=== PATIENT | female | born 1990 | race Caucasian/White ===

== ENCOUNTER → 2018-03-31 10:32 | Outpatient (CLI) | payer OTHER, SELFPAY ==
--- NOTE | 2018-03-31 10:44 | DI.CT.S_ITS ---
PROCEDURE: CT HEAD/BRAIN WO CON INDICATIONS: headache TECHNIQUE: Noncontrast 4.5 mm thick angled axial sections acquired from the foramen magnum to the vertex, with coronal and sagittal reformats. For radiation dose reduction, the following was used: automated exposure control, adjustment of mA and/or kV according to patient size. COMPARISON: None. FINDINGS: Image quality: Excellent. CSF spaces: Basal cisterns are patent. No extra-axial fluid collections. Ventricles are normal in size and shape. Brain: No midline shift. No intracranial masses or hemorrhage. Walker-white matter interface is normal. Skull and face: Calvarium and visualized facial bones are intact, without suspicious lesions. Sinuses: Visualized sinuses and mastoids are clear. IMPRESSION: 1. Normal CT brain scan, no etiology of chronic headaches seen. Dictated by: Cornelio Alexandra M.D. on 03/31/2018 at 10:53 Approved by: Cornelio Alexandra M.D. on 03/31/2018 at 10:54
== END ==
PROVIDERS: PCP Family Medicine; Visit Provider Family Medicine
DX: R51 Headache (principal)
CPT/HCPCS: 70450

== ENCOUNTER → 2018-10-08 11:10 | Outpatient (CLI) | payer OTHER, SELFPAY ==
[2018-10-08 12:33] LABS: HCG Quantitative /Beta subunit 14.14 mIU/mL
== END ==
PROVIDERS: PCP Family Medicine; Visit Provider Family Medicine
DX: N91.2 Amenorrhea, unspecified (principal)
CPT/HCPCS: 36415; 84702

== ENCOUNTER → 2018-10-10 06:55 | Outpatient (CLI) | payer OTHER, SELFPAY ==
[2018-10-10 09:58] LABS: HCG Quantitative /Beta subunit 5.47 mIU/mL
== END ==
PROVIDERS: PCP Family Medicine; Visit Provider Family Medicine
DX: N91.2 Amenorrhea, unspecified (principal)
CPT/HCPCS: 36415; 84702

== ENCOUNTER → 2018-11-04 09:38 | Outpatient (CLI) | payer OTHER, SELFPAY ==
[2018-11-04 10:42] LABS: Add Manual Diff / Slide Review NO; Basophils Absolute Auto 0 /uL (0-100); Basophils Percent Auto 0.3 % (0-2); Eosinophils Absolute Auto 0 /uL (0-450); Eosinophils Percent Auto 0.6 % (2-4); Hematocrit 41.2 % (36-46); Hemoglobin 13.9 g/dL (12.0-16.0); Lymphocytes Absolute Auto 3100 /uL (1100-4500); Lymphocytes Percent Auto 38.1 % (25-40); Mean Corpuscular HGB Conc 33.7 % (30-36); Mean Corpuscular Hemoglobin 29.6 PG (26-34); Mean Corpuscular Volume 87.8 fL (80-100); Monocytes Absolute Auto 700 /uL (0-900); Monocytes Percent Auto 8.3 % (3-14); Neutrophils Absolute Auto 4300 /uL (1500-7000); Neutrophils Percent Auto 52.7 % (50-75); Platelet Count 245 X10^3/uL (150-400); Red Blood Cell Count 4.69 X10^6/uL (4.0-5.2); Red Cell Distribution Width 13.6 % (11.6-14.8); White Blood Cell Count 8.2 X10^3/uL (4.5-11.0)
[2018-11-04 10:54] LABS: HEMOLYSIS < 15 (0-50); Iron 142 ug/dL (37-170)
[2018-11-04 11:05] LABS: Percent Iron Saturation 37 % (15-50); Total Iron Binding Capacity 386 ug/dL (265-497); Transferrin 298 mg/dL (206-381)
[2018-11-04 11:36] LABS: Vitamin B12 640 pg/mL (239-931)
== END ==
PROVIDERS: Family Provider Family Medicine; PCP Family Medicine; Visit Provider Family Medicine
DX: D64.9 Anemia, unspecified (principal); R51 Headache
CPT/HCPCS: 36415; 82607; 83540; 83550; 85025

== ENCOUNTER → 2018-11-19 09:07 | Outpatient (CLI) | payer OTHER, SELFPAY | PROVIDERS: Family Provider Family Medicine; PCP Family Medicine; Visit Provider Family Medicine | DX: R51 Headache (principal); Z53.9 Procedure and treatment not carried out, unspecified reason ==

== ENCOUNTER → 2018-11-24 08:43 | Outpatient (CLI) | payer OTHER, SELFPAY ==
[2018-11-24 11:33] LABS: HCG Quantitative /Beta subunit 34226 mIU/mL
== END ==
PROVIDERS: PCP Family Medicine; Visit Provider Family Medicine
DX: Z34.90 Encounter for supervision of normal pregnancy, unspecified, unspecified trimester (principal)
CPT/HCPCS: 36415; 84702

== ENCOUNTER → 2018-11-26 16:37 | Outpatient (CLI) | payer OTHER, SELFPAY ==
[2018-11-26 18:52] LABS: HCG Quantitative /Beta subunit 48369 mIU/mL
== END ==
PROVIDERS: PCP Family Medicine; Visit Provider Family Medicine
DX: Z34.90 Encounter for supervision of normal pregnancy, unspecified, unspecified trimester (principal)
CPT/HCPCS: 36415; 84702

== ENCOUNTER → 2018-12-08 09:08 | Outpatient (CLI) | payer OTHER, SELFPAY ==
--- NOTE | 2018-12-08 09:09 | DI.US.S_ITS ---
PROCEDURE: US OB <= 14 WEEKS FETUS INDICATIONS: DATES OUTSIDE/PRIOR DATING DATA: Last menstrual period (LMP): 10/08/18. LMP-based estimated date of delivery (NASREEN): 07/15/19. First dating scan (date and location): 12/08/18. Estimated date of delivery (NASREEN) from first dating scan: 07/14/19. TECHNIQUE: Real-time scanning was performed of the fetus and maternal pelvic organs, with image documentation. Endovaginal scanning was also performed to better visualize the fetus and maternal ovaries. COMPARISON: None. FINDINGS: Embryo: Single living intrauterine fetus is present with a heart rate measuring 182 beats per minute. Arthur-rump length measures 2.2 cm, 8 weeks 6 days. Measurement variability in dating: +/- 4 weeks by LMP, +/- 7 days by mean sac diameter (use before 6 weeks gestation if crown-rump length not able to be measured), +/- 5 days by crown-rump length (up to 8 weeks 6 days gestation), +/- 7 days by crown-rump length (up to 13 weeks 6 days gestation). Maternal organs: Ovaries unremarkable. Limited images through the kidneys demonstrate no hydronephrosis. IMPRESSION: Single living intrauterine fetus with a gestational age measuring 8 weeks and 6 days by today's ultrasound measurements, concordant with reported LMP as above. Dictated by: Eder Bullock M.D. on 12/08/2018 at 10:00 Approved by: Eder Bullock M.D. on 12/08/2018 at 10:01
== END ==
PROVIDERS: PCP Family Medicine; Visit Provider Family Medicine
DX: Z34.91 Encounter for supervision of normal pregnancy, unspecified, first trimester (principal); Z3A.08 8 weeks gestation of pregnancy
CPT/HCPCS: 76801; 76817

== ENCOUNTER → 2018-12-31 10:33 | Outpatient (CLI) | payer OTHER, SELFPAY ==
[2018-12-31 12:12] LABS: Appearance Urine UA CLEAR; Bilirubin Urine UA NEGATIVE (NEGATIVE); Color Urine UA YELLOW; Glucose Urine UA NEGATIVE (Negative); Ketones Urine UA NEGATIVE (NEGATIVE); Leukocyte Esterase Urine UA NEGATIVE (NEGATIVE); Nitrite Urine UA NEGATIVE (Negative); Occult Blood Urine UA NEGATIVE (Negative); Protein Urine UA NEGATIVE (Negative); Urobilinogen Urine UA 0.2 E.U./dL (0.2)
[2018-12-31 12:12] LABS: Add Manual Diff / Slide Review NO; Basophils Absolute Auto 0 /uL (0-100); Basophils Percent Auto 0.3 % (0-2); Eosinophils Absolute Auto 100 /uL (0-450); Eosinophils Percent Auto 0.8 % (2-4); Hematocrit 38.6 % (36-46); Hemoglobin 13.6 g/dL (12.0-16.0); Lymphocytes Absolute Auto 3100 /uL (1100-4500); Lymphocytes Percent Auto 29.4 % (25-40); Mean Corpuscular HGB Conc 35.2 % (30-36); Mean Corpuscular Hemoglobin 30.8 PG (26-34); Mean Corpuscular Volume 87.4 fL (80-100); Monocytes Absolute Auto 800 /uL (0-900); Monocytes Percent Auto 7.5 % (3-14); Neutrophils Absolute Auto 6500 /uL (1500-7000); Platelet Count 212 X10^3/uL (150-400); Red Blood Cell Count 4.42 X10^6/uL (4.0-5.2); Red Cell Distribution Width 13.7 % (11.6-14.8); White Blood Cell Count 10.6 X10^3/uL (4.5-11.0)
[2018-12-31 21:30] LABS: HIV 1 and 2 Antibody NEGATIVE (NEGATIVE); Hep C Virus Ab w/Reflex Quant NEGATIVE s/c (NEGATIVE); Hepatitis B Surface Antigen NEGATIVE s/c (NEGATIVE); Rubella Antibody IgG 2.8 IU/mL (>15)
[2019-01-02 15:05] LABS: RPR Screen Nonreactive (Nonreactive)
== END ==
PROVIDERS: PCP Family Medicine; Visit Provider Family Medicine
DX: Z34.81 Encounter for supervision of other normal pregnancy, first trimester (principal)
CPT/HCPCS: 36415; 80055; 81003; 86703; 86787; 86803; 86850; 86900; 86901; 87086

== ENCOUNTER → 2019-01-28 09:56 | Outpatient (CLI) | payer OTHER, SELFPAY ==
[2019-02-03 15:34] LABS: AFP, Serum 30.9 ng/mL; Cigarette Smoker NOT GIVEN; Donated Egg NOT GIVEN; Donor Egg Age NOT GIVEN; Estriol, Free 0.69 ng/mL; Inhibin A, Dimeric 180 pg/mL; Maternal Ethnicity CAUCASIAN; Maternal Weight 135 lbs; Number of Fetuses NOT GIVEN; Previous Pregnancy Down Syndro NOT GIVEN; hCG, MoM 0.93; hCG, Serum 34.4 IU/mL
== END ==
PROVIDERS: PCP Family Medicine; Visit Provider Family Medicine
DX: Z34.02 Encounter for supervision of normal first pregnancy, second trimester (principal); Z3A.16 16 weeks gestation of pregnancy
CPT/HCPCS: 36415; 82105; 82677; 84702; 86336

== ENCOUNTER → 2019-02-25 08:52 | Outpatient (CLI) | payer OTHER, SELFPAY ==
--- NOTE | 2019-02-25 08:54 | DI.US.S_ITS ---
PROCEDURE: US OB >= 14 WEEKS FETUS INDICATIONS: ANATOMY SCAN OUTSIDE/PRIOR DATING DATA: Last menstrual period (LMP): 10/08/18. LMP-based estimated date of delivery (NASREEN): 07/15/19. First dating scan (date and location): 12/08/18. Estimated date of delivery (NASREEN) from first dating scan: 07/14/19. TECHNIQUE: Real-time scanning was performed of the fetus, with image documentation and biometric measurements. Endovaginal scanning: No COMPARISON: [facility], OB <= 14 WEEKS FETUS, 12/08/2018, 9:32. FINDINGS: General: A single living intrauterine gestation is present. Presentation: Variable. Placenta: Placental position is posterior, and low lying with the inferior margin of the placenta roughly 2.0 cm above the internal cervical os. Amniotic fluid index: 16.5 cm, normal range is 5-24 cm. heart rate: 145 beats per minute. Maternal cervical canal: 44 cm long. Normal lower limit is 2.5 cm. biometrics: Biparietal diameter: 20 weeks 0 days Head circumference: 20 weeks 4 days Abdominal circumference: 20 weeks 5 days Femur length: 20 weeks 3 days Estimated gestational age from initial scan: 20 weeks 1 day Composite gestational age from present scan: 20 weeks 3 days Estimated weight and percentile: 60 g; 68 percentile Measurement variability for biometric dating: +/- 7 days from 14 weeks to 15 weeks 6 days gestation, +/- 10 days from 16 weeks to 21 weeks 6 days gestation, +/- 2 weeks from 22 weeks to 27 weeks 6 days gestation, +/- 3 weeks for 28 weeks gestation or later. weight reference: 4500 g or EFW >90/95% is considered macrosomia or large for gestational age. EFW <10% is small for gestational age. EFW 5% or less is considered intra-uterine growth restriction. Anatomic survey: Neuro: Ventricles are non-dilated at less than 10 mm. Cisterna magna is normal at 3-11 mm. Cerebellum is normal in size and morphology. Nuchal skin fold: Normal at less than 6 mm between 14-21 weeks gestational age. Face: Nose and lips, facial profile are normal. Spine: No evidence for spina bifida. Heart: 4-chambered heart is present, with normal ventricular outflow tracts. Diaphragm: Diaphragm is intact. Stomach: Left-sided stomach is present. Kidneys: No hydronephrosis. Normal is less than 5 mm in 2nd trimester, less than 7 mm in 3rd trimester. Cord: 3-vessel cord has orthotopic insertion. Bladder: Normal in size. Extremities: All 4 extremities identified. IMPRESSION: Normal interval growth and normal anatomic survey. Low lying placenta. Followup recommended. Dictated by: Alejo Herrera [facility] Interpreted: Gladys Collins MD on 02/25/2019 at 12:10 Approved by: Gladys Collins MD, PhD on 02/25/2019 at 14:57
== END ==
PROVIDERS: PCP Family Medicine; Visit Provider Family Medicine
DX: Z34.82 Encounter for supervision of other normal pregnancy, second trimester (principal); Z3A.20 20 weeks gestation of pregnancy
CPT/HCPCS: 76811

== ENCOUNTER → 2019-04-02 09:11 | Outpatient (CLI) | payer OTHER, SELFPAY ==
--- NOTE | 2019-04-02 09:13 | DI.US.S_ITS ---
PROCEDURE: US OB LIMITED INDICATIONS: EVALUATE PLACENTAL LOCATION OUTSIDE/PRIOR DATING DATA: Last menstrual period (LMP): 10/08/18. LMP-based estimated date of delivery (NASREEN): 07/15/19. First dating scan (date and location): 12/08/18. Estimated date of delivery (NASREEN) from first dating scan: 07/14/19. TECHNIQUE: Real-time scanning was performed of the fetus, with image documentation and biometric measurements. Endovaginal scanning: No COMPARISON: [facility], [facility], 04/25/2017, 10:52. FINDINGS: General: A single living intrauterine gestation is present. Presentation: Variable. Placenta: Placental position is posterior, and low lying with the inferior margin of the placenta and 1.8 cm superior to the internal cervical os. Amniotic fluid index: 21.5 cm, normal range is 5-24 cm. heart rate: 160 beats per minute. Maternal cervical canal: 3.4 cm long. Normal lower limit is 2.5 cm. biometrics: Biparietal diameter: 20 weeks 0 days Head circumference: 20 weeks 4 days Abdominal circumference: 20 weeks 5 days Femur length: 20 weeks 3 days Estimated gestational age from initial scan: 20 weeks 1 day Composite gestational age from present scan: 20 weeks 3 days Estimated weight and percentile: 360 g; 68 percentile Measurement variability for biometric dating: +/- 7 days from 14 weeks to 15 weeks 6 days gestation, +/- 10 days from 16 weeks to 21 weeks 6 days gestation, +/- 2 weeks from 22 weeks to 27 weeks 6 days gestation, +/- 3 weeks for 28 weeks gestation or later. weight reference: 4500 g or EFW >90/95% is considered macrosomia or large for gestational age. EFW <10% is small for gestational age. EFW 5% or less is considered intra-uterine growth restriction. Other: Not applicable. IMPRESSION: 1. Single living IUP redemonstrated and interval growth is normal. 2. Normal anatomic survey. 3. Low-lying placenta. Followup recommended. Dictated by: Alejo CARBAJAL Interpreted: Fernando Murillo MD on 04/02/2019 at 10:37 Approved by: Fernando Murillo M.D. on 04/02/2019 at 11:54
== END ==
PROVIDERS: PCP Family Medicine; Visit Provider Family Medicine
DX: O44.42 Low lying placenta NOS or without hemorrhage, second trimester (principal); Z3A.20 20 weeks gestation of pregnancy
CPT/HCPCS: 76815

== ENCOUNTER → 2019-04-07 09:18 | Outpatient (CLI) | payer OTHER, SELFPAY ==
[2019-04-07 10:52] LABS: Hematocrit 39.2 % (36-46); Hemoglobin 13.2 g/dL (12.0-16.0)
[2019-04-07 11:42] LABS: GTT (PREG) 1 Hour PP 50gm Dose 75 mg/dL (76-139)
== END ==
PROVIDERS: PCP Family Medicine; Visit Provider Family Medicine
DX: Z34.02 Encounter for supervision of normal first pregnancy, second trimester (principal); Z3A.26 26 weeks gestation of pregnancy
CPT/HCPCS: 36415; 82950; 85014; 85018

== ENCOUNTER → 2019-06-15 08:56 | Outpatient (CLI) | payer OTHER, SELFPAY ==
[2019-06-15 13:25] LABS: Strep Grp A by PCR Rapid Negative
== END ==
PROVIDERS: PCP Family Medicine; Visit Provider Family Medicine
DX: Z34.83 Encounter for supervision of other normal pregnancy, third trimester (principal)
CPT/HCPCS: 87651

== ENCOUNTER 2019-06-30 19:12 | Inpatient (IN) | payer OTHER, SELFPAY ==
--- NOTE | 2019-06-30 20:00 | PM.OBHP.1 ---
OB HPI Date/Time Date of admission: 06/30/19 Date Patient Seen: 06/30/19 Time Patient Seen: 07:40 History of Present Condition Chief complaint: OBSERVATION OF LABOR : 2 Para: 1 Estimated Date of Delivery: 07/15/19 Estimated Gestational Age (weeks): 37w6d Narrative: Sindy Matias is a 28 year old at 37w6d who presented in active labor. Regular painful contractions starting around 5:30pm, with LOF at 6:30pm. No vaginal bleeding. History of Present care: good care, initiated at week # (11) and pounds weight gain (26) Dating criteria: LMP confirmed by 1st trimester US Ultrasounds: normal 1st trimester US and normal mid trimester US Abnormal ultrasound findings: marginal previa on anatomy ultrasound, resolved at f/u ultrasound 4 weeks later Obstetrical complications: none Medical complications: none Preadmission Labs Blood type: O (+) positive -: Antibody screen: negative, GBS status: negative, HBsAG: negative, HIV: negative and RPR/VDLR: negative -: Rubella: not immune and Varicella: immune HCT: 39.2 HCAB: negative Quad screen: Normal 1 hr GTT: 75 Prior (ies) History: without complications at 39w1d, boy, 7lb2oz Evaluation Evaluation Variability: Moderate (11-25) monitor accelerations: Present monitor decelerations: Variable Category of Tracing: II PFSH Social History Smoking Status: Never smoker Meds Home Medications and Allergies Home Medications Medication Instructions Recorded Confirmed Type vitamin-ferrous fumarate 1 cap PO QDAY #90 cap 11/17/18 Rx 65 mg iron-folic acid 1 mg capsule Allergies Allergy/AdvReac Type Severity Reaction Status Date / Time penicillamine [PENICILLAMINE] Allergy Unknown Verified 11/04/18 09:00 Exam Narrative Exam Narrative: Gen: NAD, sitting in bed, appears shocked CV: RRR, no murmurs Resp: clear to auscultation bilaterally Abd: appropriately tender, fundus firm and at umbilicus Ext: no edema Assessment and Plan Assessment and Plan Assessment and Plan narrative: 28yo at 37w6d who presented in active labor. Pt with precipitous delivery prior to my arrival with triple nuchal cord present. Only brief monitoring available prior to delivery, with deep variable decels present. Baby did require brief resuscitation with approximately 2min of PPV due to poor tone and color, HR > 100 however. - Normal care - support
--- NOTE | 2019-06-30 20:13 | PM.OBPRVD ---
Labor & Delivery Delivery date: 06/30/19 Intrapartal events: Precipitous Labor < 3 hours Cervical ripening method: none Induction method: none Delivery monitor: external FHT (< 10 minutes) Route of delivery: Episiotomy description: None L&D Laceration Description: None Estimated blood loss (mL): 400 Anesthesia type: None Complications: None Narrative: PROCEDURE: at 37w6d presented in active labor and was admitted to Labor and Delivery. The patient progressed through the 1st stage over 1 hour, presenting to the hospital < 15 minutes prior to delivery. The pt had ROM outside the hospital with thin meconium present. She progressed through the second stage in < 5 minutes with passive pushing. The pt was delivered by the nurse due to rapid labor at 19:36. There was a triple nuchal cord present, reduced at the perineum. APGARS 2/8/9 with initial points given only for HR > 100. The baby required PPV after delivery due to poor tone and color. The placenta was delivered with gentle cord traction. The perineum and vagina were inspected with no lacerations noted. PREPROCEDURE DIAGNOSIS: Intrauterine at 37w6d GBS negative RH positive POSTPROCEDURE DIAGNOSIS: Intrauterine at 37w6d, delivered Same as preprocedure Precipitous vaginal delivery ROM APPEARANCE: thin meconium BABY A DELIVERY TIME: 19:36 BABY A WEIGHT: 6lb4oz BABY A # CORD VESSELS: 3 BABY A CORD GASES OBTAINED: No PLACENTA DELIVERY TIME: 19:41 PLACENTA APPEARANCE: Intact Baby 1: Infant gender: Male Presentation: vertex position: Right Occiput Anterior Placenta delivery description: Spontaneous cord vessel description: Tight (nuchal x3) score (1 min): 2 score (5 min): 8 score (10 min): 9 Plan for aftercare: Normal care
[2019-06-30] MEDS: IBUPROFEN 600 MG TABLET PO (20:17)
[2019-06-30] MEDS: OXYTOCIN 10 UNIT/ML VIAL IM (20:18)
[2019-06-30] MEDS: METHYLERGONOVINE 0.2 MG/ML VIAL IM (21:45)
[2019-07-01] MEDS: ACETAMINOPHEN 325 MG TABLET 650 MG PO (01:26)
[2019-07-01] MEDS: METHYLERGONOVINE 0.2 MG TABLET PO ×3 (01:27→09:38)
[2019-07-01 03:42] VITALS: BP 138/95
[2019-07-01] MEDS: IBUPROFEN 600 MG TABLET PO ×3 (05:34→18:10)
[2019-07-01 07:17] LABS: Add Manual Diff / Slide Review NO; Basophils Absolute Auto 0 /uL (0-100); Basophils Percent Auto 0.1 % (0-2); Eosinophils Absolute Auto 0 /uL (0-450); Eosinophils Percent Auto 0.1 % (2-4); Hematocrit 38.9 % (36-46); Hemoglobin 13.1 g/dL (12.0-16.0); Lymphocytes Absolute Auto 3100 /uL (1100-4500); Lymphocytes Percent Auto 15.1 % (25-40); Mean Corpuscular HGB Conc 33.8 % (30-36); Mean Corpuscular Hemoglobin 30.7 PG (26-34); Mean Corpuscular Volume 90.9 fL (80-100); Monocytes Absolute Auto 1400 /uL (0-900); Monocytes Percent Auto 6.8 % (3-14); Neutrophils Absolute Auto 16100 /uL (1500-7000); Neutrophils Percent Auto 77.9 % (50-75); Platelet Count 214 X10^3/uL (150-400); Red Blood Cell Count 4.27 X10^6/uL (4.0-5.2); Red Cell Distribution Width 12.8 % (11.6-14.8); White Blood Cell Count 20.7 X10^3/uL (4.5-11.0)
[2019-07-01] MEDS: PRENATAL VIT,CALC/IRON/FOLIC 1 TABLET 1 TAB PO (09:38)
[2019-07-01] MEDS: DOCUSATE 250 MG CAPSULE PO (09:38)
--- NOTE | 2019-07-01 17:05 | PM.OBDS.1 ---
Discharge Providers Provider Date of admission: 06/30/19 19:12 Discharge Date: 07/01/19 Primary care physician: Elidia Vazquez MD Consults: 06/30/19 19:58 Consult to American Sign Language Teacher Routine Comment: Discharge provider: Elidia Vazquez MD Summary Hospital Course Date Patient Seen: 07/01/19 Time Patient Seen: 08:00 Procedures: Spontaneous vaginal delivery Hospital Course: The pt presented to the hospital and had a precipitous vaginal delivery of a viable baby boy at 19:36 on 06/30/19. There was a tight nuchal cord x3, and the baby did require resuscitation but recovered well. There were no lacerations. The pt had a slightly delayed hemorrhage - initial blood lost estimated to be 400cc, with another 300cc lost approximately 2 hours after delivery. This was controlled with IM and then PO Methergine. The pts H/H was stable, without any anemia the next day, however. At the time of discharge, her lochia was decreasing appropriately. She was with good latch after frenotomy for her baby. She was voiding, passing flatus, and ambulating without difficulty. She will f/u in clinic in 6 weeks. Peripartum Data Delivery Method: Natural Vaginal Laceration description: None Episiotomy description: None Procedures: Spontaneous vaginal delivery complications: other (hemorrhage) 1: Gender: Male Disposition of : home Discharge Diagnosis (1) Spontaneous vaginal delivery: Status: Acute Status at Discharge Cognitive/behavioral status at discharge: oriented Functional status at discharge: independent ambulation Overall status at discharge: patient is progressing back to baseline Time Spent with Patient Time attestation: Total time spent providing and/or coordinating discharge services: Time spent: Greater than 30 minutes Objective Labs Result Diagrams: 07/01/19 06:32 Labs: Laboratory Results - last 24 hr 07/01/19 06:32 WBC 20.7 H RBC 4.27 Hgb 13.1 Hct 38.9 MCV 90.9 MCH 30.7 MCHC 33.8 RDW 12.8 Plt Count 214 Neut % (Auto) 77.9 H Lymph % (Auto) 15.1 L Hutchinson % (Auto) 6.8 Eos % (Auto) 0.1 L Baso % (Auto) 0.1 Neut # (Auto) 44934 H Lymph # (Auto) 3100 [place]inson # (Auto) 1400 H Eos # (Auto) 0 Baso # (Auto) 0 Exam Narrative Exam Narrative: Gen: NAD, sitting comfortably in bed, appears well CV: RRR, no murmurs Resp: clear to auscultation bilaterally Abd: soft, nontender, nondistended, fundus firm and below the umbilicus Ext: no edema Discharge Plan Discharge Plan Patient Disposition: Home Discharge Med Rec/Prescriptions Prescriptions: New acetaminophen 325 mg Tablet 650 mg PO Q6HR PRN (Reason: Pain, Mild (1-3)) Qty: 30 RF: 0 Dermoplast (with menthol) 20-0.5 % Aerosol 1 spray topical Q1HR PRN (Reason: perineal pain) Qty: 15 RF: 0 ibuprofen 600 mg Tablet 600 mg PO Q6HR PRN (Reason: Pain, Mild (1-3)) Qty: 30 RF: 0 docusate sodium 250 mg Capsule 250 mg PO DAILY Qty: 30 RF: 0 [id number]-I-Gabmvb Cream 1 applic topical PRN PRN (Reason: Tenderness) Qty: 15 RF: 0 Continued Mynatal 65 mg iron- 1 mg capsule 1 cap PO QDAY Qty: 90 RF: 3 Follow up/Referrals: Elidia Vazquez MD [Primary Care Provider] - (please f/u w/ Dr. Vazquez on Saturday, Aug.10 @ 11am please f/u w/ Clinic at [facility] on Jul 08 @ 12pm) Provider Discharge Instructions Diet: Diet as Tolerated and Regular Visit Report/Discharge Packet Instructions: DI for Labor and Delivery, Vaginal Stand Alone Forms: Discharge: Care Visit Report Forms: Patient Portal/API, Stroke Signs & Symptoms Discharge Data Primary Care Provider: Elidia Vazquez Discharges patient from system. Discharge Date/Time: 07/01/19 19:45
[2019-07-01 17:55] VITALS: BP 125/77; PULSE 82; RESP 16; TEMP 36.2
[2019-07-01 18:10] VITALS: TEMP 36.2
[2019-07-01] MEDS: MEASLES,MUMPS,RUBELLA VACC/PF 0.5 ML VIAL SUBCUT (19:10)
== END 2019-07-01 19:45 | disposition home or self-care (01) | DRG 807 ==
PROVIDERS: Admitting Provider Family Medicine; PCP Family Medicine; Visit Provider Family Medicine
DX: O62.3 Precipitate labor (principal); Z37.0 Single live birth; Z3A.37 37 weeks gestation of pregnancy; O69.1XX0 Labor and delivery complicated by cord around neck, with compression, not applicable or unspecified; O77.0 Labor and delivery complicated by meconium in amniotic fluid
CPT/HCPCS: 36415; 59050; 59400; 85025; G0379; J2210; J2590